=== PATIENT | female | born 1955 | race Caucasian/White ===

== ENCOUNTER 2021-06-30 10:43 | Inpatient (IN) | payer OTHER ==
[~2021-06-30] VITALS: Ht 165.1 cm; Wt 101.3 kg
[2021-06-30] MEDS ORDERED: PROCHLORPERAZINE EDISYLATE 5 MG/ML 2ML VIAL IV ONE (11:00)
[2021-06-30] MEDS ORDERED: MORPHINE SULFATE 4 MG/ML SYR/VIAL IV ONE (11:00)
[2021-06-30] MEDS ORDERED: SODIUM CHLORIDE 0.9% 500 ML IV ONE (11:00)
[2021-06-30] MEDS ORDERED: PANTOPRAZOLE 40 MG/10 ML VIAL INJ IV ONE (11:00)
[2021-06-30] MEDS ORDERED: PIPERACILLIN-TAZOB 3.375GM 100 ML IV ONE (11:45)
[2021-06-30 11:49] LABS: Albumin 3.7 g/dL (3.4-5.0); BUN/Creatinine Ratio 12.9; Calcium 10.3 mg/dL (8.5-10.1); Magnesium 2.7 mg/dL (1.6-2.6); Potassium 3.4 mmol/L (3.5-5.1)
[2021-06-30 11:52] LABS: Basophils # (auto) 0.1 10 ^3/uL (0-0.2); Basophils % (auto) 0.6 % (0.0-2.0); Bilirubin, Total 0.9 mg/dL (0.2-1.0); Eosinophils # (auto) 0 10 ^3/uL (0-0.8); Hematocrit 41.3 % (36.0-46.0); Hemoglobin 14.2 g/dL (12.2-16.2); Lymphocytes # (auto) 1.2 10 ^3/uL (0.4-5.4); Lymphocytes % (auto) 8.9 % (10.0-50.0); Mean Corpuscular Hemoglobin 29.9 pg (28.0-32.0); Mean Corpuscular Hgb Conc. 34.4 g/dL (32.0-36.0); Monocytes # (auto) 0.7 10 ^3/uL (0-1.3); Monocytes % (auto) 5.1 % (0.0-12.0); Neutrophils # (auto) 11.9 10 ^3/uL (1.6-8.6); Neutrophils % (auto) 85.4 % (37.0-80.0); Nucleated Red Blood Cells % 0.1 %; Red Blood Cells 4.74 10^6/uL (4.0-5.20); Red Cell Distribution Width 13.6 % (11.8-14.3); Total Protein 7.5 g/dL (6.4-8.2)
[2021-06-30] MEDS ORDERED: IPRATROPIUM BROM 0.5 MG/2.5ML INH SOL HHN ONE (12:30)
[2021-06-30] MEDS ORDERED: ALBUTEROL SULF 2.5 MG/0.5ML(0.5%) NEB SOLN HHN ONE (12:30)
[2021-06-30] MEDS ORDERED: NITROGLYCERIN 0.4 MG SL TAB SL PRN (13:00)
[2021-06-30] MEDS ORDERED: DOCUSATE SOD 100 MG CAP PO PRN (13:00)
[2021-06-30] MEDS ORDERED: MORPHINE SULFATE INJECTION 2 MG/ML SYRG IV PRN (13:00)
[2021-06-30] MEDS ORDERED: MORPHINE SULFATE 4 MG/ML SYR/VIAL IV PRN (13:00)
[2021-06-30] MEDS ORDERED: ONDANSETRON HCL 4 MG/2 ML VIAL IV PRN (13:00)
[2021-06-30] MEDS ORDERED: ACETAMINOPHEN 325 MG TAB PO PRN (13:00)
[2021-06-30] MEDS ORDERED: GADOTERATE MEG 10 MMOL/20ml INJ (0.5MMOL/ml) IV ONE (13:57)
[2021-06-30 14:17] LABS: Phosphorus 3.9 mg/dL (2.5-4.90)
[2021-06-30 15:10] LABS: INR 0.98 (0.9-1.15); Partial Thromboplastin Time 26.6 sec (23.6-33.0)
[2021-06-30] MEDS ORDERED: LOSA-69 PO (17:07)
[2021-06-30] MEDS ORDERED: PROP80CA40 PO (17:07)
[2021-06-30] MEDS ORDERED: HYDR12.56 PO (17:07)
[2021-06-30] MEDS ORDERED: CLON-853 PO (17:07)
[2021-06-30] MEDS ORDERED: VENL75CA78 PO (17:07)
[2021-06-30] MEDS: SODIUM CHLORIDE 0.9% 1,000 ML IV SCH (17:42)
[2021-06-30] MEDS: metroNIDAZOLE 500MG/100ML 100 ML IV SCH ×2 (17:42→21:33)
[2021-06-30] MEDS: POTASSIUM CHL 10MEQ/50ML 50 ML IV SCH ×2 (17:42→17:43)
[2021-06-30] MEDS: ATORVASTATIN 20 MG TAB PO SCH (21:33)
[2021-06-30] MEDS: clonazePAM 0.5 MG TAB PO SCH (21:33)
[2021-06-30 22:00] VITALS: BP 125/79
[2021-07-01] MEDS: ACETAMINOPHEN 325 MG TAB PO PRN ×2 (04:48→21:12)
[2021-07-01 05:00] VITALS: BP 148/76
[2021-07-01 05:39] LABS: Basophils # (auto) 0.1 10 ^3/uL (0-0.2); Basophils % (auto) 0.7 % (0.0-2.0); Eosinophils # (auto) 0.2 10 ^3/uL (0-0.8); Eosinophils % (auto) 1.9 % (0.0-7.0); Hemoglobin 13.1 g/dL (12.2-16.2); Lymphocytes # (auto) 2.2 10 ^3/uL (0.4-5.4); Lymphocytes % (auto) 18.5 % (10.0-50.0); Mean Corpuscular Hemoglobin 30.1 pg (28.0-32.0); Mean Corpuscular Hgb Conc. 34.5 g/dL (32.0-36.0); Mean Corpuscular Volume 87.2 fL (80.0-100.0); Monocytes % (auto) 8.7 % (0.0-12.0); Neutrophils # (auto) 8.3 10 ^3/uL (1.6-8.6); Neutrophils % (auto) 70.2 % (37.0-80.0); Red Blood Cells 4.35 10^6/uL (4.0-5.20); Red Cell Distribution Width 13.8 % (11.8-14.3); White Blood Cell 11.8 10^3/uL (4.4-10.8)
[2021-07-01] MEDS: metroNIDAZOLE 500MG/100ML 100 ML IV SCH ×3 (05:51→21:11)
[2021-07-01] MEDS: clonazePAM 0.5 MG TAB PO SCH ×3 (05:51→21:11)
[2021-07-01 06:29] LABS: Albumin 3.2 g/dL (3.4-5.0); BUN/Creatinine Ratio 11.4; Bilirubin, Total 1.1 mg/dL (0.2-1.0); Calcium 8.9 mg/dL (8.5-10.1); Total Protein 6.5 g/dL (6.4-8.2)
[2021-07-01] MEDS: SODIUM CHLORIDE 0.9% 1,000 ML IV SCH ×3 (07:00→20:16)
[2021-07-01] MEDS: cefTRIAXone 1GM/50ML D5W 50 ML IV SCH (08:36)
[2021-07-01 09:00] VITALS: BP 106/78
[2021-07-01] MEDS: PANTOPRAZOLE 40 MG/10 ML VIAL INJ IV SCH (09:46)
[2021-07-01] MEDS: LOSARTAN POTASSIUM 50 MG TAB PO SCH (09:46)
[2021-07-01] MEDS: VENLAFAXINE HCL 37.5MG TABLET PO SCH (09:46)
[2021-07-01] MEDS: NICOTINE 14 MG/24HR TOPICAL PATCH TD SCH (09:47)
[2021-07-01] MEDS: HEPARIN SODIUM (PORCINE) 5000 UNITS/ML 1ML VIAL SC SCH ×2 (10:00→22:00)
[2021-07-01] MEDS: PROPRANOLOL HCL 20 MG TAB PO SCH (10:00)
[2021-07-01] MEDS ORDERED: HCTZ 25 MG TAB PO SCH (10:00)
[2021-07-01 13:00] VITALS: BP 104/73
[2021-07-01 16:53] VITALS: BP 107/77
[2021-07-01] MEDS ORDERED: POTASSIUM EFFERVESENT TAB 25 MEQ PO ONE (17:00)
[2021-07-01] MEDS: ATORVASTATIN 20 MG TAB PO SCH (21:11)
[2021-07-01 22:00] VITALS: BP 130/74
[2021-07-02 05:00] VITALS: BP 128/70
[2021-07-02] MEDS: metroNIDAZOLE 500MG/100ML 100 ML IV SCH ×3 (06:12→22:07)
[2021-07-02] MEDS: clonazePAM 0.5 MG TAB PO SCH ×3 (06:12→21:05)
[2021-07-02 08:00] VITALS: BP 106/78
[2021-07-02] MEDS: VENLAFAXINE HCL 37.5MG TABLET PO SCH (08:55)
[2021-07-02] MEDS: HEPARIN SODIUM (PORCINE) 5000 UNITS/ML 1ML VIAL SC SCH ×2 (08:55→21:17)
[2021-07-02] MEDS: PANTOPRAZOLE 40 MG/10 ML VIAL INJ IV SCH (08:55)
[2021-07-02] MEDS: NICOTINE 14 MG/24HR TOPICAL PATCH TD SCH (08:55)
[2021-07-02] MEDS: cefTRIAXone 1GM/50ML D5W 50 ML IV SCH (08:55)
[2021-07-02 09:00] VITALS: BP 136/93
[2021-07-02] MEDS: PROPRANOLOL HCL 20 MG TAB PO SCH (09:25)
[2021-07-02] MEDS: LOSARTAN POTASSIUM 50 MG TAB PO SCH (09:25)
[2021-07-02 13:00] VITALS: BP 124/87
[2021-07-02 15:58] LABS: Urine Bacteria NONE SEEN /hpf (None Seen); Urine Blood Negative /uL (Negative); Urine Hyaline Cast FEW /lpf (0 - 2); Urine WBC 2 /hpf (0 - 5)
[2021-07-02 16:16] LABS: Alcohol, Urine < 3.0 mg/dL (0-10); Amphetamine Screen, Urine NEGATIVE (NEGATIVE); Barbiturate Scree,Urine NEGATIVE (NEGATIVE); Benzodiazephine Screen, Urine NEGATIVE (NEGATIVE); Cannabinoid Screen, Urine NEGATIVE (NEGATIVE); Cocaine Screen, Urine NEGATIVE (NEGATIVE); Phencyclidine Screen, Urine NEGATIVE (NEGATIVE)
[2021-07-02 16:39] LABS: Opiate Scree,Urine NEGATIVE (NEGATIVE)
[2021-07-02 17:00] VITALS: BP 131/86
[2021-07-02] MEDS: HYDROcodone-ACET 5/325MG TAB PO PRN (17:30)
[2021-07-02 18:15] LABS: Urine Bacteria NONE SEEN /hpf (None Seen); Urine Blood Negative /uL (Negative); Urine Specific Gravity 1.006 (1.001-1.035); Urine WBC <1 /hpf (0 - 5)
[2021-07-02] MEDS: SODIUM CHLORIDE 0.9% 1,000 ML IV SCH (18:57)
[2021-07-02] MEDS: ATORVASTATIN 20 MG TAB PO SCH (21:06)
[2021-07-02 22:00] VITALS: BP 101/64
[2021-07-02] MEDS: TEMAZEPAM 15 MG CAP PO PRN (22:10)
[2021-07-03 05:00] VITALS: BP 103/63
[2021-07-03] MEDS: clonazePAM 0.5 MG TAB PO SCH ×3 (05:49→21:32)
[2021-07-03] MEDS: metroNIDAZOLE 500MG/100ML 100 ML IV SCH ×3 (05:49→21:32)
[2021-07-03 05:52] LABS: Basophils # (auto) 0.1 10 ^3/uL (0-0.2); Basophils % (auto) 0.7 % (0.0-2.0); Eosinophils # (auto) 0.4 10 ^3/uL (0-0.8); Eosinophils % (auto) 3.6 % (0.0-7.0); Hematocrit 37.3 % (36.0-46.0); Hemoglobin 13.2 g/dL (12.2-16.2); Lymphocytes # (auto) 1.8 10 ^3/uL (0.4-5.4); Mean Corpuscular Hemoglobin 30.7 pg (28.0-32.0); Mean Corpuscular Hgb Conc. 35.3 g/dL (32.0-36.0); Mean Corpuscular Volume 86.8 fL (80.0-100.0); Monocytes # (auto) 0.8 10 ^3/uL (0-1.3); Monocytes % (auto) 8.2 % (0.0-12.0); Neutrophils # (auto) 6.9 10 ^3/uL (1.6-8.6); Neutrophils % (auto) 69.5 % (37.0-80.0); Red Cell Distribution Width 13.8 % (11.8-14.3)
[2021-07-03 06:01] LABS: INR 1.1 (0.9-1.15); Partial Thromboplastin Time 28.2 sec (23.6-33.0)
[2021-07-03 06:14] LABS: Albumin 3.2 g/dL (3.4-5.0); BUN/Creatinine Ratio 8.2; Calcium 9.2 mg/dL (8.5-10.1)
[2021-07-03 06:19] LABS: Bilirubin, Total 0.7 mg/dL (0.2-1.0); Total Protein 6.6 g/dL (6.4-8.2)
[2021-07-03 06:43] LABS: Potassium 2.9 mmol/L (3.5-5.1)
[2021-07-03] MEDS: POTASSIUM CHL 10MEQ/50ML 50 ML IV SCH ×4 (07:00→12:25)
[2021-07-03] MEDS ORDERED: POTASSIUM CHL 10MEQ/50ML 50 ML IV ONE (07:02)
[2021-07-03] MEDS: SODIUM CHLORIDE 0.9% 1,000 ML IV SCH (07:55)
[2021-07-03 08:23] VITALS: BP 149/94
[2021-07-03] MEDS: cefTRIAXone 1GM/50ML D5W 50 ML IV SCH (09:00)
[2021-07-03] MEDS ORDERED: LORazepam 2MG/ML-1ML VIAL IM ONE (09:15)
[2021-07-03] MEDS: PANTOPRAZOLE 40 MG/10 ML VIAL INJ IV SCH (09:18)
[2021-07-03] MEDS: VENLAFAXINE HCL 37.5MG TABLET PO SCH (09:19)
[2021-07-03] MEDS: LOSARTAN POTASSIUM 50 MG TAB PO SCH (09:19)
[2021-07-03] MEDS: PROPRANOLOL HCL 20 MG TAB PO SCH (09:20)
[2021-07-03] MEDS: HEPARIN SODIUM (PORCINE) 5000 UNITS/ML 1ML VIAL SC SCH ×2 (10:00→21:33)
[2021-07-03] MEDS: NICOTINE 14 MG/24HR TOPICAL PATCH TD SCH (10:00)
[2021-07-03 12:55] VITALS: BP 147/89
[2021-07-03] MEDS ORDERED: SUCCINYLCHOLINE CHLORIDE 20 MG/ML 10ML VIAL IV ONE (14:09)
[2021-07-03] MEDS ORDERED: BUPIVACAINE 0.25% INJ 50ML VIAL ONE (14:20)
[2021-07-03] MEDS ORDERED: MIDAZOLAM HCL 2MG/2ML 2ml VIAL (1mg/ml) ONE (14:25)
[2021-07-03] MEDS ORDERED: fentaNYL CITRATE 100 MCG/2 ML VL ONE (14:25)
[2021-07-03] MEDS ORDERED: METOCLOPRAMIDE HCL 5MG/ml INJ 2ml VIAL ONE ×2 (14:28→15:13)
[2021-07-03] MEDS ORDERED: ONDANSETRON HCL 4 MG/2 ML VIAL ONE ×2 (14:28→15:13)
[2021-07-03] MEDS ORDERED: GLYCOPYRROLATE 0.2 MG/ML 1ML VIAL ONE (15:13)
[2021-07-03] MEDS ORDERED: NEOSTIGMINE 1 MG/ML INJ (10mg/10ML VIAL) ONE (15:13)
[2021-07-03] MEDS ORDERED: ONDANSETRON HCL 4 MG/2 ML VIAL IV PRN (16:45)
[2021-07-03] MEDS ORDERED: METOCLOPRAMIDE HCL 5MG/ml INJ 2ml VIAL IV PRN (16:45)
[2021-07-03] MEDS ORDERED: fentaNYL CITRATE 100 MCG/2 ML VL IV PRN (16:45)
[2021-07-03] MEDS ORDERED: HYDROmorphone HCL 2 MG/ML VL IV PRN ×3 (16:45)
[2021-07-03] MEDS ORDERED: ePHEDrine SULFATE 50 MG/ML AMP IV PRN (16:45)
[2021-07-03] MEDS ORDERED: LORazepam 2MG/ML-1ML VIAL ONE (16:46)
[2021-07-03] MEDS ORDERED: LORazepam 2MG/ML-1ML VIAL IV ONE (17:00)
[2021-07-03] MEDS ORDERED: METR500T PO (18:37)
[2021-07-03] MEDS ORDERED: LEVO500T31 PO (18:37)
[2021-07-03 20:00] VITALS: BP_SYST 103
[2021-07-03 20:01] LABS: BUN/Creatinine Ratio 11.8; Calcium 8.4 mg/dL (8.5-10.1)
[2021-07-03] MEDS: ATORVASTATIN 20 MG TAB PO SCH (21:33)
[2021-07-03] MEDS: HYDROcodone-ACET 5/325MG TAB PO PRN (21:54)
[2021-07-03] MEDS: TEMAZEPAM 15 MG CAP PO PRN (23:48)
[2021-07-04] MEDS: HYDROcodone-ACET 5/325MG TAB PO PRN ×3 (01:56→12:40)
[2021-07-04] MEDS: SODIUM CHLORIDE 0.9% 1,000 ML IV SCH ×2 (03:51→10:35)
[2021-07-04 05:00] VITALS: BP 103/57
[2021-07-04 05:26] LABS: Basophils # (auto) 0 10 ^3/uL (0-0.2); Basophils % (auto) 0.3 % (0.0-2.0); Eosinophils # (auto) 0 10 ^3/uL (0-0.8); Hematocrit 33.8 % (36.0-46.0); Hemoglobin 11.6 g/dL (12.2-16.2); Lymphocytes # (auto) 0.5 10 ^3/uL (0.4-5.4); Mean Corpuscular Hemoglobin 29.6 pg (28.0-32.0); Mean Corpuscular Hgb Conc. 34.3 g/dL (32.0-36.0); Mean Corpuscular Volume 86.4 fL (80.0-100.0); Monocytes # (auto) 0.5 10 ^3/uL (0-1.3); Neutrophils # (auto) 12.2 10 ^3/uL (1.6-8.6); Neutrophils % (auto) 91.7 % (37.0-80.0); Red Blood Cells 3.91 10^6/uL (4.0-5.20); Red Cell Distribution Width 13.9 % (11.8-14.3); White Blood Cell 13.4 10^3/uL (4.4-10.8)
[2021-07-04 05:45] LABS: Calcium 8.1 mg/dL (8.5-10.1); Potassium 3.8 mmol/L (3.5-5.1)
[2021-07-04 05:48] LABS: Albumin 2.8 g/dL (3.4-5.0); BUN/Creatinine Ratio 11.5
[2021-07-04 05:50] LABS: Bilirubin, Total 0.3 mg/dL (0.2-1.0); Total Protein 5.9 g/dL (6.4-8.2)
[2021-07-04] MEDS: metroNIDAZOLE 500MG/100ML 100 ML IV SCH ×2 (05:52→14:00)
[2021-07-04] MEDS: clonazePAM 0.5 MG TAB PO SCH ×2 (05:53→14:00)
[2021-07-04] MEDS: HEPARIN SODIUM (PORCINE) 5000 UNITS/ML 1ML VIAL SC SCH (10:00)
[2021-07-04] MEDS: LOSARTAN POTASSIUM 50 MG TAB PO SCH (10:00)
[2021-07-04] MEDS: VENLAFAXINE HCL 37.5MG TABLET PO SCH (10:00)
[2021-07-04] MEDS: NICOTINE 14 MG/24HR TOPICAL PATCH TD SCH (10:00)
[2021-07-04] MEDS: PROPRANOLOL HCL 20 MG TAB PO SCH (12:42)
[2021-07-04] MEDS: cefTRIAXone 1GM/50ML D5W 50 ML IV SCH (12:52)
[2021-07-04 18:01] VITALS: BP 104/67
== END 2021-07-04 19:00 | disposition home or self-care (01) | DRG 417 ==
LOC: EDBD 10:43 → ER 10:43 → OVERFLOW 12:59 → TELE-EAST 16:18
PROVIDERS: ADMIT Internal Medicine; ATTEND Internal Medicine
PROC: 0FT44ZZ Resection of Gallbladder, Percutaneous Endoscopic Approach (ICD-10-PCS; principal; 2021-07-03 14:21)
DX: K80.00 Calculus of gallbladder with acute cholecystitis without obstruction (principal); K65.1 Peritoneal abscess; K57.30 Diverticulosis of large intestine without perforation or abscess without bleeding; N18.30 Chronic kidney disease, stage 3 unspecified; E87.6 Hypokalemia; E66.9 Obesity, unspecified; E78.00 Pure hypercholesterolemia, unspecified; E78.5 Hyperlipidemia, unspecified; F43.10 Post-traumatic stress disorder, unspecified; I12.9 Hypertensive chronic kidney disease with stage 1 through stage 4 chronic kidney disease, or unspecified chronic kidney disease; Z20.822 Contact with and (suspected) exposure to COVID-19; F17.210 Nicotine dependence, cigarettes, uncomplicated; F32.A Depression, unspecified; F41.9 Anxiety disorder, unspecified; R16.0 Hepatomegaly, not elsewhere classified; Z68.37 Body mass index [BMI] 37.0-37.9, adult; Z90.710 Acquired absence of both cervix and uterus; Z83.3 Family history of diabetes mellitus
CPT/HCPCS: 36415; 71045; 74176; 74183; 76705; 80048; 80053; 80061; 80307; 81001; 83036; 83690; 83735; 84100; 85025; 85610; 85730; 86850; 86900; 86901; 87426; 93005; 94640; 96361; 96365; 96375; C9113; G0378; J0330; J0696; J2250; J2405; J2543; J3490